=== PATIENT | female | born 1940 | race Caucasian/White ===

== ENCOUNTER 2016-12-18 21:11 | Emergency (ER) | payer OTHER ==
[~2016-12-18] VITALS: Ht 165.1 cm; Wt 104.5 kg
[2016-12-18] MEDS ORDERED: SPIR50 PO (21:31)
[2016-12-18] MEDS ORDERED: POTA8TAB4 PO (21:31)
[2016-12-18] MEDS ORDERED: OMEP20 PO (21:31)
[2016-12-18] MEDS ORDERED: NORT10 PO (21:31)
[2016-12-18] MEDS ORDERED: METF500T4 PO (21:31)
[2016-12-18] MEDS ORDERED: CIPR-278 PO (21:31)
[2016-12-18] MEDS ORDERED: RIFAX550 PO (21:31)
[2016-12-18] MEDS ORDERED: FURO20 PO (21:31)
[2016-12-18] MEDS ORDERED: LACT30L PO (21:31)
[2016-12-18] MEDS ORDERED: LORazepam 1 MG TABLET PO ONE (22:15)
[2016-12-18 22:22] LABS: ANION GAP 8 mmol/L (8-16); CALCIUM, TOTAL 8.3 mg/dL (8.8-10.5); CARBON DIOXIDE 25 mmol/L (22-29); CHLORIDE 108 mmol/L (98-107); CREATININE 1.04 mg/dL (0.60-1.30); GLOMERULAR FILTR. RATE CALC 52 mL/min (>60); POTASSIUM 4.4 mmol/L (3.5-5.1); SODIUM SERUM 141 mmol/L (136-145); UREA NITROGEN, BLOOD 14 mg/dL (7-18)
[2016-12-18 22:28] LABS: BASOPHILS % (AUTO) 0.2 % (0.0-2.0); EOSINOPHILS % (AUTO) 1.6 % (1.0-6.0); HEMOGLOBIN 9.6 g/dL (12.0-16.0); LYMPHOCYTES # (AUTO) 1.3 K/uL (1.0-4.8); LYMPHOCYTES % (AUTO) 22.4 % (22.0-44.0); MEAN CORPUSCULAR HEMOGLOBIN 27.3 pg (26.0-34.0); MEAN CORPUSCULAR VOLUME 83 fL (80-100); MONOCYTES # (AUTO) 0.7 K/uL (0.1-1.0); MONOCYTES % (AUTO) 11.8 % (2.0-9.0); NEUTROPHILS # (AUTO) 3.6 K/uL (1.8-7.7); RED CELL DISTRIBUTION WIDTH 17.1 % (11.5-14.5); WHITE BLOOD COUNT (AUTO) 5.6 K/uL (4.5-11.0)
[2016-12-18 22:37] LABS: ALANINE AMINOTRANSFERASE 32 U/L (12-78); ALBUMIN 2.8 g/dL (3.4-5.0); ASPARTATE AMINOTRANSFERASE 36 U/L (15-37); BILIRUBIN,TOTAL 0.6 mg/dL (0.1-1.0); THYROID STIMULATING HORMONE 2.61 uIU/mL (0.36-3.74); TOTAL PROTEIN, SERUM 6.1 g/dL (6.4-8.2)
[2016-12-18 22:54] LABS: PLATELET COUNT (AUTO) 115 K/uL (150-450)
[2016-12-18 22:55] LABS: RBC MORPHOLOGY COMMENT ABNORMAL RBC MORPH
[2016-12-18 23:27] VITALS: BP 122/62
== END 2016-12-18 23:33 | disposition home or self-care (01) ==
LOC: EMS 21:14
DX: F41.9 Anxiety disorder, unspecified (principal); D64.9 Anemia, unspecified; K27.9 Peptic ulcer, site unspecified, unspecified as acute or chronic, without hemorrhage or perforation; M25.561 Pain in right knee; G89.29 Other chronic pain; I11.0 Hypertensive heart disease with heart failure; I50.9 Heart failure, unspecified; K21.9 Gastro-esophageal reflux disease without esophagitis; E11.9 Type 2 diabetes mellitus without complications
CPT/HCPCS: 36415; 80053; 80307; 82962; 84443; 84484; 85025; 93005; 99285; G0480